=== PATIENT | female | born 1965 | race Caucasian/White ===

== ENCOUNTER 2019-05-19 16:00 | Outpatient (CLI) | payer BC ==
[2013-01-01 21:31] VITALS: BP 118/72
[2019-05-19 16:37] LABS: eGFR (Non-African) > 60
[2019-05-19 16:51] LABS: HDL 42 mg/dL (>40)
== END 2019-05-19 16:03 ==
LOC: LAB 16:00
PROVIDERS: ATTEND Family Medicine
DX: Z13.220 Encounter for screening for lipoid disorders (principal)
CPT/HCPCS: 36415; 80053; 80061